=== PATIENT | male | born 1945 | race Caucasian/White ===

== ENCOUNTER → 2022-04-06 10:17 | Outpatient (BNVA) | payer MEDICARE, SELFPAY | PROVIDERS: PCP Internal Medicine; Visit Provider Nurse Practitioner Family | DX: G62.9 Polyneuropathy, unspecified (principal); R53.1 Weakness; K90.0 Celiac disease; R51.9 Headache, unspecified | CPT/HCPCS: 99202 ==

== ENCOUNTER → 2022-07-08 09:27 | Outpatient (BNVA) | payer MEDICARE, SELFPAY | PROVIDERS: PCP Internal Medicine; Visit Provider Nurse Practitioner Family | DX: G62.9 Polyneuropathy, unspecified (principal); R51.9 Headache, unspecified; R53.1 Weakness; K90.0 Celiac disease | CPT/HCPCS: 99212 ==

== ENCOUNTER → 2023-01-06 09:26 | Outpatient (BNVA) | payer MEDICARE, SELFPAY | PROVIDERS: PCP Internal Medicine; Visit Provider Nurse Practitioner Family | DX: G62.9 Polyneuropathy, unspecified (principal); R53.1 Weakness; R51.9 Headache, unspecified | CPT/HCPCS: 99212 ==

== ENCOUNTER 2023-07-12 09:21 | Outpatient (AMB) | payer MEDICARE, SELFPAY ==
[2023-07-12 09:30] VITALS: BP 118/82; BMI 20.7
--- NOTE | 2023-07-12 09:30 | A.OFFVIS_ITS ---
Intake Vital Signs 07/12/23 09:30 Height 6 ft 2 in Weight 161 lb BMI 20.7 BP 118/82 Blood Pressure Location Rt brachial Position Sitting Intake Visit Reasons: 6m follow up peripheral neuropathy - Confirmed Intake Note: Patient presents for 6 month follow up peripheral neuropathy. just the same issues that Nadine had when I've been here before Allergies gluten Allergy (Verified 07/12/23 09:32) Unknown Medication List - Last Reconciled 07/12/23 by YANNICK Araiza cholecalciferol (vitamin D3) 25 mcg PO DAILY fluoride (sodium) 1.1% (Denta 5000 Plus) appl PO BEDTIME magnesium oxide 400 mg PO BEDTIME 30 days riboflavin (vitamin B2) 400 mg PO DAILY 30 days sumatriptan succinate 50 - 100 mg orally at onset of headache, may repeat in 2 hrs PRN; max 2 tabs per day or 4 tabs/week (may take with Tylenol) 30 days HPI HPI Comments History of Present Illness Details 77-yr-old male presents for f/u visit. Pt denies any significant interval medical changes. Pt reports that his legs still feel weak. He recalls that when the weakness started after he had Covid-19, he had post- exercise fatigue, headache, GI upset, weakness x's a whole day. This progressed into increased weakness. This has subsided, where he is not having the more intense degree of post-exertion weakness. He notes he does try to not overexert while staill being active. Every few days, he will need to take a break. He is usually able to do a 1 mile walk on his treadmill as well as some stationary cycling, and does try to so some strength training- if he does more he will be more tired which can last into the next day. Sometimes distal BLE may feel not quite right, there is some numbness in R > L. He denies BLE discomfort, numbness. He is compliant w/ gluten free diet. Headaches are not great- waking up most nights toward the morning, w/ a headache, not most severe in the world . It is a general head pressure. He notes he almost always have some neck tightness and head pressure. He is taking the Mag and B2. He did try the Sumatriptan after his reclast tx- helped but caused nausea. [facility] Medical History Hypertensive disorder Inactive tuberculosis Malignant tumor of prostate Migraine Osteoarthritis of right knee Osteoporosis Pleural cavity effusion Surgical History Hx of resection of small bowel History of prostate surgery Hx of hernia repair Hx of cholecystectomy Family History Father Cancer Mother Stroke Family/Other Colon cancer Social History Household Members: Spouse Alcohol intake: current Alcohol intake frequency: a few times a week Patient Tobacco Use Status: Never used Tobacco Review of Systems Const All systems reviewed & are unremarkable except as noted in HPI and below Physical Exam Vital Signs: Last Vital Signs BP 118/82 07/12/23 09:30 BMI result Body Mass Index 20.7 Const General: cooperative and no acute distress Orientation/consciousness: patient oriented x3 HEENT Head: Yes normocephalic Resp Effort & Inspection: normal respiratory effort and able to speak in complete sentences Neuro Other: MS BLE MS 5/5 General: patient oriented x3, gait normal and CN's II-XI intact bilaterally Cognition (Neuro): normal cognition Motor exam (neuro): 5/5 motor strength present throughout Deep tendon reflexes (DTR's): Right patellar reflex intensity grade: 2+ and Left patellar reflex intensity grade: 2+ Psych Appearance: grossly normal Mental Status: mental status grossly normal Speech and movement: Normal speech and movement present Affect: normal affect Attitude: cooperative Thought process: Normal thought process present Thought content: Normal thought content present Insight: Good insight present (Psych) Judgement: Good judgement present (Psych) Assessment & Plan Assessment & Plan (1) Polyneuropathy: Comment: BLE EMG/NCS (May 2022 at [facility]): 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 Code(s): G62.9 - Polyneuropathy, unspecified (2) Weakness: Code(s): R53.1 - Weakness (3) Migraine without aura: Code(s): G43.009 - Migraine without aura, not intractable, without status migrainosus Plan LE EMG/NCS: 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 I suspect this is secondary to celiac dz, as the neuropathy s/s were his initial s/s that prompted celiac work-up. His s/s are improving, although there is some residual BLE fatigue. Reviewed again- Pt is still not interested in undergoing further peripheral neuropathy work-up at this point, will reconsider if s/s worsen. Continue exercise. Hold Sumatriptan 100mg prn- effective but causes GI upset- Trial Rizatriptan- pt may use prn, especially for his osteoporosis tx which can trigger migraine attack. Continue Riboflavin and Magnesium for low-grade headache symptoms. Future considerations- gepant or augmenting preventive tx f/u in 6 months or sooner prn new/worsening w/w. Medications: New rizatriptan max 2 tabs per day or 4 tabs per week 5 - 10 mg (0.5 - 1 x 10 mg) PO Q2H PRN 12 tabs 3RF migraine headache 21 days Discontinued sumatriptan succinate Discontinued Reason: Doctor's Order (0.5 - 1 x 100 mg) 50 - 100 mg orally at onset of headache, may repeat in 2 hrs PRN; max 2 tabs per day or 4 tabs/week (may take with Tylenol) 30 days 12 tabs 1RF migraine headache Coding Level of Care Code Est Pt Level 4 (64441) Diagnoses Polyneuropathy G62.9 Weakness R53.1 Migraine without aura G43.009
== END 2023-07-12 10:33 | disposition home or self-care (01) ==
PROVIDERS: PCP Internal Medicine; Visit Provider Nurse Practitioner Family
DX: G62.9 Polyneuropathy, unspecified (principal); R53.1 Weakness; G43.009 Migraine without aura, not intractable, without status migrainosus
CPT/HCPCS: 99214

== ENCOUNTER → 2023-07-12 09:21 | Outpatient (BNVA) | payer MEDICARE, SELFPAY | PROVIDERS: PCP Internal Medicine; Visit Provider Nurse Practitioner Family | DX: G62.9 Polyneuropathy, unspecified (principal); G43.009 Migraine without aura, not intractable, without status migrainosus; R53.1 Weakness | CPT/HCPCS: 99212 ==

== ENCOUNTER 2024-03-14 10:01 | Outpatient (AMB) | payer MEDICARE, SELFPAY ==
[2024-03-14 10:12] VITALS: BP 118/72; PULSE 62; O2SAT 98; BMI 20.7
--- NOTE | 2024-03-14 10:12 | MHC.OFFVIS ---
Vital Signs 03/14/24 10:12 Height 6 ft 2 in Weight 161 lb 8 oz BMI 20.7 BP 118/72 Blood Pressure Location Rt brachial Position Sitting Pulse 62 Pulse Source Pulse Oximeter Pulse Oximetry (%) 98 Oxygen Delivery Method Room Air Intake Visit Reasons: 6 mo f/u Plug Grower Required: No Accompanied by: Self / Same As Patient Allergies gluten Allergy (Verified 03/14/24 10:13) Unknown HPI Comments Details: 78-yr-old male presents for f/u visit. Pt denies any significant interval medical changes. Pt reports that his legs weakness is stable. Sometimes distal BLE may feel not quite right, like not having full strength when walking. He denies BLE discomfort, numbness. He is usually able to do 45 minutes a day of- walking on his treadmill as well as some stationary cycling, and does try to so some strength training- if he does more he will be more tired which can last into the next day. Tries to pace his activities, which he states is not so much an issue w/ indoor activities, but more so outdoor /yard work activities. He is compliant w/ gluten free diet. His headaches have improved some. He is taking the Mag. He has not been taking the B2. He has not needed to take the Rizatriptan often- but is better tolerated the the Sumatriptan. He does note that he has also had Bilateral high pitched toned Tinnitus since the previous Covid-19 infection. It is not overly bothersome- more so at bedtime or in quiet spaces. Has had hearing eval- has some mild high tone hearing loss. [facility] Medical History Hypertensive disorder Pleural cavity effusion Osteoarthritis of right knee Migraine Inactive tuberculosis Osteoporosis Malignant tumor of prostate Surgical History Hx of resection of small bowel History of prostate surgery Hx of hernia repair Hx of cholecystectomy Family History Father Cancer Mother Stroke Family/Other Colon cancer Social History Household Members: Spouse Alcohol intake: current Alcohol intake frequency: a few times a week Patient Tobacco Use Status: Never used Tobacco Physical Exam Const General: cooperative and no acute distress Orientation/consciousness: patient oriented x3 Resp Effort & Inspection: normal respiratory effort and able to speak in complete sentences Neuro Other: BLE MS 5/5. General: patient oriented x3 Cranial nerves: Yes CN's II-XII intact bilaterally Cognition (Neuro): normal cognition Deep tendon reflexes (DTR's): Right patellar reflex intensity grade: 2+ and Left patellar reflex intensity grade: 2+ Psych Appearance: grossly normal Mental Status: mental status grossly normal Speech and movement: Normal speech and movement present Affect: normal affect Attitude: cooperative Assessment & Plan Assessment & Plan (1) Polyneuropathy: Comment: BLE EMG/NCS (May 2022 at [facility]): 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 Code(s): G62.9 - Polyneuropathy, unspecified Category: Medical (2) Migraine without aura: Code(s): G43.009 - Migraine without aura, not intractable, without status migrainosus Category: Medical (3) Weakness: Code(s): R53.1 - Weakness Category: Medical Plan LE EMG/NCS: 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 I suspect this is secondary to celiac dz, as the neuropathy s/s were his initial s/s that prompted celiac work-up. His s/s have improved but stabilized with some residual BLE fatigue. Pt is has not been interested in undergoing further peripheral neuropathy work-up at this point, will reconsider if s/s worsen. Continue exercise. Rizatriptan- pt may use prn, especially for his osteoporosis tx which can trigger migraine attack. Continue Magnesium for low-grade headache symptoms. If headcahes worsen, resume Riboflavin. Preventive treatments- Sumatriptan 100mg prn- effective but causes GI upset Future considerations- gepant or augmenting preventive tx ? f/u in 6 months or sooner prn new/worsening w/w. Coding Level of Care Code Est Pt Level 4 (02041) Diagnoses Polyneuropathy G62.9 Migraine without aura G43.009 Weakness R53.1
== END 2024-03-14 11:19 | disposition home or self-care (01) ==
PROVIDERS: PCP Internal Medicine; Visit Provider Nurse Practitioner Family
DX: G62.9 Polyneuropathy, unspecified (principal); G43.009 Migraine without aura, not intractable, without status migrainosus; R53.1 Weakness
CPT/HCPCS: 99214

== ENCOUNTER → 2024-03-14 10:01 | Outpatient (BNVA) | payer MEDICARE, SELFPAY | PROVIDERS: PCP Internal Medicine; Visit Provider Nurse Practitioner Family | DX: G62.9 Polyneuropathy, unspecified (principal); G43.009 Migraine without aura, not intractable, without status migrainosus; R53.1 Weakness | CPT/HCPCS: 99212 ==

== ENCOUNTER 2024-12-12 10:52 | Outpatient (AMB) | payer MEDICARE, SELFPAY ==
[2024-12-12 10:55] VITALS: BP 108/76; PULSE 67; O2SAT 96; BMI 22.0
--- NOTE | 2024-12-12 10:55 | A.OFFVIS_ITS ---
Vital Signs 12/12/24 10:55 Height 6 ft 2 in Weight 171 lb 6 oz BMI 22.0 BP 108/76 Blood Pressure Location Rt brachial Position Sitting Pulse 67 Pulse Source Pulse Oximeter Pulse Oximetry (%) 96 Oxygen Delivery Method Room Air Intake Visit Reasons: 9mo F/U Intake Note: Patient here for a follow-up, feeling well. Illuminating Engineer Required: No Accompanied by: Self / Same As Patient Allergies gluten Allergy (Verified 12/12/24 11:01) Unknown Medication List - Last Reconciled 12/12/24 by YANNICK Araiza cholecalciferol (vitamin D3) 25 mcg PO DAILY fluoride (sodium) 1.1% (Denta 5000 Plus) appl PO BEDTIME magnesium oxide 400 mg PO BEDTIME 30 days riboflavin (vitamin B2) 400 mg PO DAILY 30 days rizatriptan 5 - 10 mg (0.5 - 1 x 10 mg) PO Q2H PRN 21 days Do you need a note to return to daycare/school/sports/work: No HPI Comments Details: 78-yr-old male presents for f/u visit headache and bilateral extremity neuropathy. Pt denies any significant interval medical changes. Pt states that he was pretty stable, however then in early winter, he started to feel like he had a relapse. He states he again started having increased episodes of abdominal pain which progresses into a headache and a poor feeling (depressed feeling) which would last a whole day- triggered by increased exertion, such as going up and down the stairs 5 times. During this time, he has not noticed an increase in his general fatigue- which he had after his initial Covid-19. He states typically more paced activities, such as working the yard for a few hours, would not trigger these episodes. Thus, he has stopped his typical exercise program for now. He notes that almost any physical activity can trigger a headache- so can have an almost daily migraine attack. He is not using the Rizatriptan very often. He has tried rizatriptan for these episodes where the headache was worse, and helps some but not fully.. He did see GI- and they did not have any new suggestions. His cardiac work-up has been very reassuring. Pt reports his leg weakness is a bit worse. Sometimes distal BLE may feel not quite right, like not having full strength when walking. He denies BLE discomfort, numbness. Again not doing his usual exercise routine- walking on his treadmill as well as some stationary cycling, and does try to so some strength training- if he does more he will be more tired which can last into the next day. Tries pace his activities, which he states is not so much an issue w/ indoor activities, but more so outdoor /yard work activities. He is compliant w/ gluten free diet- states his celiac antibody testing shows the celiac disease is well controlled. He does note that he has also had Bilateral high pitched toned Tinnitus since the previous Covid-19 infection. It is not overly bothersome- more so at bedtime or in quiet spaces. Has had hearing eval- has some mild high tone hearing loss. 04/06/2022, Initial HPI: 76-yr-old male presents for neurological evaluation of: dizziness, headcahes, neuropathy, GI discomfort. Pt has h/o HTN and celiac dz, prostate CA. Pt reports in mid he was diagnosed w/ BLE neuropathy, which eventually was attributed to Celiac dz (dx'd in 2015). At that time, pt reports BLE weakness, Mahamed foot coldness/burning sensations.At that time, he was also having migranious headaches and abdominal s/s. He has BLE EMG/NCS at Dr Turcios's office, which confirmed neuropathy. All of these symptoms improved after the celiac dz dx and he stopped taking gluten. He states that overall he was doing pretty well last year, although there was still some mild headaches, abdominal discomfort, and dizziness. However, in Jun 2021, he developed COVID-19 with mild head cold type symptoms, which resolved by mid-Jul 2021. After, maybe in early August, he started noticing fatigue induc ed by activity. The fatigue progressed to the point where he was not doing anything d/t weakness, w/ difficulty walking, and feeling unstable. His legs feel weak. This does not feel exactly the same as when he was initially dx'd w/ BLE neuropathy. During this period, his headaches intensified. He describes a daily headache that comes and goes. The headache is in the back of the head. He denies any associated photophobia, phonophobia, N/V, autonomic s/s. In the am he may have some neck tightness. He is also prone to a dizziness- he has difficulty describing it, but similar to a not right in space sensation a/w nausea and abdominal tightness but no vomiting. Dizziness can be triggered by eye movement. He denies any orthostatic lightheadedness/fogginess or syncope, although had orthostatic drop in BP and elevation in HR on testing at PCP office. He also has chronic pelvic and low back pain, but no shooting pains. Head and Neck CTA, December 2021- NL. Head CT, December 2021- no acute findings. Brain MRI w/o, January 2020, scattered punctuate T2 FLAIR hyperintensities suggestive of chronic microvascular iscshemia- similar to previous exam from 2018 Recent Gi work-up, including abd CT/MRI, upper/lower endoscopsy, was WNL. F/u celiac testing has been WNL. CBCs, CMPs, Lyme, AM cortisol ACTH levels -NL. Per pt, he had recent cardiac cath- WNL. He was recently tried on Midodrine for about a month, which did not help. He saw Dr Silverio, ENT. He had a normal hearing exam, but exam suggested a vestibular component to pt's dizziness symptoms. Advised to have brain MRI and start vestibular PT. PCP has recently ordered a l-spine MRI. Last c-spine MRI- in 2013. Last BLE EMG/NCS before 2016 [facility] Medical History Hypertensive disorder Pleural cavity effusion Osteoarthritis of right knee Migraine Inactive tuberculosis Osteoporosis Malignant tumor of prostate Surgical History Hx of resection of small bowel History of prostate surgery Hx of hernia repair Hx of cholecystectomy Family History Father Cancer Mother Stroke Family/Other Colon cancer Social History Household Members: Spouse Alcohol intake: current Alcohol intake frequency: a few times a week Patient Tobacco Use Status: Never used Tobacco Physical Exam Vital Signs: Last Vital Signs Pulse 67 12/12/24 10:55 BP 108/76 12/12/24 10:55 Pulse Ox 96 12/12/24 10:55 Oxygen Delivery Method Room Air 12/12/24 10:55 BMI result Body Mass Index 22.0 Const General: cooperative and no acute distress Orientation/consciousness: patient oriented x3 Resp Effort & Inspection: normal respiratory effort and able to speak in complete sentences Neuro General: patient oriented x3 Cranial nerves: Yes CN's II-XII intact bilaterally Cognition (Neuro): normal cognition Deep tendon reflexes (DTR's): Right patellar reflex intensity grade: 2+ and Left patellar reflex intensity grade: 2+ Psych Appearance: grossly normal Mental Status: mental status grossly normal Speech and movement: Normal speech and movement present Affect: normal affect Attitude: cooperative Assessment & Plan Assessment & Plan (1) Polyneuropathy: Comment: BLE EMG/NCS (May 2022 at [facility]): 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 Code(s): G62.9 - Polyneuropathy, unspecified Category: Medical (2) Migraine without aura: Code(s): G43.009 - Migraine without aura, not intractable, without status migrainosus Category: Medical Qualifiers: Status migrainosus presence: without status migrainosus Intractability: not intractable Qualified Code(s): G43.009 - Migraine without aura, not intractable, without status migrainosus (3) Weakness: Code(s): R53.1 - Weakness Category: Medical Plan For migraine without aura: Discussed that these recurrent episodes of GI upset associated with headache are likely migraine without aura. Unfortunately rizatriptan has not been effective for these, thus we discussed alternative therapies. Patient's preference is to try Ubrelvy- advised to take this at the earliest sign of the episode, as there is evidence for Ubrelvy to be effective when taken at onset of prodrome symptoms, and may resolve prodrome symptoms as well as the headache phase of migraine. Rizatriptan- pt may use prn, especially for his osteoporosis tx which can trigger migraine attack. Continue Magnesium 400 mg daily at bedtime Continue riboflavin 400 mg daily at bedtime Preventive acute treatment trials- Sumatriptan 100mg prn- effective but causes GI upset, rizatriptan-not fully effective. Future considerations- augmenting preventative treatment with low-dose amitriptyline. 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 I suspect this is secondary to celiac dz, as the neuropathy s/s were his initial s/s that prompted celiac work-up. His s/s have improved but stabilized with some residual BLE fatigue. Pt is has not been interested in undergoing further peripheral neuropathy work- up at this point, will reconsider if s/s worsen. Goal is to resume regular exercise. ? f/u in 6 months or sooner prn new/worsening w/w. Medications: New ubrogepant (Ubrelvy) take at onset of migraine, may repeat in 2hrs 50 - 100 mg (0.5 - 1 x 100 mg) PO ONCE 30 days PRN 16 tabs 6RF migraine headache Coding Level of Care Code Est Pt Level 4 (65464) Diagnoses Polyneuropathy G62.9 Migraine without aura and without status migrainosus, not intractable G43.009 Status migrainosus presence: without status migrainosus Intractability: not intractable Weakness R53.1
--- OUTSIDE RECORDS SUMMARY | 2024-12-12 12:49 | XMS_ITS | Clinical Summary ---
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 Name Role Phone Khanh Miranda MD Primary Care Provider Encounters Date Type Department Care Team Description 11/29/2024 Telephone [facility] [address] [place] [address] Aman Ogden MD records from Last 3 Months Surgical History Surgery Date Site/Laterality Comments BOWEL RESECTION PROCEDURE: HISTORICAL BOWEL RESECTION; COMMENT: small bowel intussuception HERNIA REPAIR PROCEDURE: HISTORICAL HERNIA REPAIR/ING PROSTATECTOMY 2013 PROCEDURE: PROSTATECTOMY UPPER GASTROINTESTINAL ENDOSCOPY 01/30/2019 PROCEDURE: OH UPPER GI ENDOSCOPY PERFORMED; COMMENT: negative, biopsy pending COLONOSCOPY PROCEDURE: HISTORICAL COLONOSCOPY; COMMENT: Performed in March [address] Suresh ESOPHAGOGASTRODUODENOSCOPY PROCEDURE: OH EGD TRANSORAL BIOPSY SINGLE/MULTIPLE; COMMENT: Performed along with colonoscopy in March [address] Suresh ESOPHAGOGASTRODUODENOSCOPY 09/23/2021 PROCEDURE: OH EGD TRANSORAL BIOPSY SINGLE/MULTIPLE; COMMENT: normal, biopsy negative for celiac and H.pylori COLONOSCOPY 09/23/2021 PROCEDURE: HISTORICAL COLONOSCOPY; COMMENT: normal Medical History Medical History Date Comments Celiac sprue DX:Celiac sprue Osteoporosis DX:Osteoporosis Neuropathy DX:Neuropathy History of prostate cancer DX:Hi story of prostate cancer Abdominal pain DX:Abdominal ashwini n Acid reflux DX:Acid reflux Gluten intolerance DX:Gluten int olerance Abdominal cramping DX:Abdominal cramping Family History Medical History Relation Name Comments Colon cancer Son Relation Name Status Comments Father Mother Son Social History Tobacco Use Types Packs/Day Years Used Date Smoking Tobacco: Never Smokeless Tobacco: Never Alcohol Use Standard Drinks/Week Comments Yes 0 (1 standard drink = 0.6 oz pur e alcohol) Sex and Gender Information Value Date Recorded Sex Assigned at Not on file Legal Sex Male 7:36 AM EST Gender Identity Not on file Sexual Orientation Not on file Obstetrics History Last Filed Vital Signs Vital Sign Reading Time Taken Comments Blood Pressure 118/76 11/23/2021 8:02 AM EDT Pulse 76 11/23/2021 8:02 AM EDT Temperature - - Respiratory Rate - - Oxygen Saturation - - Inhaled Oxygen Concentration - - Weight 73.2 kg (161 lb 6.4 oz) 11/23/2021 8:02 A M EDT Height 188 cm (6' 2 ) 11/23/2021 8:02 AM EDT Body Mass Index 20.72 11/23/2021 8:02 AM EDT Plan of Treatment Health Maintenance Due Date Last Done Comments COVID-19 Vaccine (#1) 1950 DTaP,Tdap,and Td Vaccines (1 - Tdap) 11/09/1963 Pneumococcal Vaccine: 50+ Ye ars (1 of 2 - PCV) 11/09/1963 Zoster Vaccines (1 of 2) 11/09/1964 RSV Immunization Adult Patie nts (1 - 1-dose 75+ series) 11/09/2019 Cholesterol Screening (Lipid Panel) 06/05/2022 Depression Screening 06/05/2022 Falls Risk Assessment 06/05/2022 Social Influencers of Health Screening 06/05/2022 Influenza Vaccine (Season Ended) 2025 HIB Vaccines Aged Out No longer eligi ble based on patient's age to complete this topic HPV Vaccines Aged Out No longer eligi ble based on patient's age to complete this topic Hepatitis A Vaccines Aged Out No long er eligible based on patient's age to complete this topic Hepatitis B Vaccines Aged Out No long er eligible based on patient's age to complete this topic IPV Vaccines Aged Out No longer eligi ble based on patient's age to complete this topic MMR Vaccines Aged Out No longer eligi ble based on patient's age to complete this topic Meningococcal ACWY Vaccine Aged Out N o longer eligible based on patient's age to complete this topic Meningococcal B Vaccine Aged Out No l onger eligible based on patient's age to complete this topic RSV Immunization Patients Un shanta 20 months Aged Out No longer eligible b ased on patient's age to complete this topic Varicella Vaccines Aged Out No longer eligible based on patient's age to complete this topic Advance Directives Documents on File Type Date Recorded Patient Legal Intern Expl anation Health Care Decision (hx) 08/23/2013 AD GONSALEZ DIRECTIVE Health Care Decision (hx) 08/23/2013 AD GONSALEZ DIRECTIVE Health Care Decision (hx) 08/23/2013 AD GONSALEZ DIRECTIVE Health Care Decision (hx) 07/26/2013 AD GONSALEZ DIRECTIVE Health Care Decision (hx) 07/26/2013 AD GONSALEZ DIRECTIVE Health Care Decision (hx) 07/26/2013 AD GONSALEZ DIRECTIVE Care Teams Electric Stove Installer Relationship Specialty Start Date End Date Khanh Miranda MD [address] [place] [address] PCP - General Internal Medicine 01/06/17
== END 2024-12-12 12:09 | disposition home or self-care (01) ==
LOC: HO.HSMS 10:53
PROVIDERS: PCP Internal Medicine; Visit Provider Nurse Practitioner Family
DX: G62.9 Polyneuropathy, unspecified (principal); G43.009 Migraine without aura, not intractable, without status migrainosus; R53.1 Weakness
CPT/HCPCS: 99214

== ENCOUNTER → 2024-12-12 10:52 | Outpatient (BNVA) | payer MEDICARE, SELFPAY | PROVIDERS: PCP Internal Medicine; Visit Provider Nurse Practitioner Family | DX: G43.009 Migraine without aura, not intractable, without status migrainosus (principal); G62.9 Polyneuropathy, unspecified; R53.1 Weakness | CPT/HCPCS: 99212 ==

== ENCOUNTER 2025-03-19 08:51 | Outpatient (AMB) | payer MEDICARE, SELFPAY ==
[2025-03-19 08:54] VITALS: BP 120/70; PULSE 65; O2SAT 99; BMI 21.8
--- NOTE | 2025-03-19 08:54 | A.OFFVIS_ITS ---
Vital Signs 03/19/25 08:54 Height 6 ft 2 in Weight 170 lb BMI 21.8 BP 120/70 Blood Pressure Location Rt brachial Position Sitting Pulse 65 Pulse Source Pulse Oximeter Pulse Oximetry (%) 99 Oxygen Delivery Method Room Air Intake Visit Reasons: 2m OK per KH Intake Note: Patient here for a follow-up, feeling well. Surveyor Mine Required: No Accompanied by: Self / Same As Patient Allergies gluten Allergy (Verified 03/19/25 08:54) Unknown Medication List - Last Reconciled 03/19/25 by YANNICK Araiza cholecalciferol (vitamin D3) 25 mcg PO DAILY fluoride (sodium) 1.1% (Denta 5000 Plus) appl PO BEDTIME magnesium oxide 400 mg PO BEDTIME 30 days riboflavin (vitamin B2) 400 mg PO DAILY 30 days rizatriptan 5 - 10 mg (0.5 - 1 x 10 mg) PO Q2H PRN 30 days ubrogepant (Ubrelvy) 50 - 100 mg (0.5 - 1 x 100 mg) PO ONCE PRN 30 days Do you need a note to return to daycare/school/sports/work: No HPI Comments Details: 79-yr-old male presents for f/u urgent follow-up visit for increased headache symptoms. Patient squeezes routinely for headache and bilateral extremity neuropathy. Patient reports he will be starting androgen-suppressing therapy for increasingly elevated PSAs; he reports overall he is asymptomatic at this time. He is concerned about the possibility of side effects, such as hot flashes. Patient reports that after his last appointment in December, he was doing ok, but then after January, he started having more migraines, abdominal tightness, and feeling generally weak. This is occurring most days. He saw a GI who thought he should follow up with us. He thinks that if his stress level is at baseline, he feels better. For instance, recently traveled out of [facility] and felt a little bit better at that time. Historically, he would tend to have migraine attacks on the weekend after workin g a whole week. He feels that the rizatriptan and ubrelvy are about equally effective- helps headache but not the associated symptoms- has not tried taking these together. Notes that the Ubrelvy co-pay was $500 for 10 tabs. He reports his leg weakness is stable. He is compliant with/a gluten-free diet- states his celiac antibody testing shows the celiac disease is well controlled. Continues to experience bilateral high-pitched, tonal tinnitus since the previous Covid-19 infection. It is not overly bothersome- more so at bedtime or in quiet spaces. Has had a hearing eval- has some mild high-tone hearing loss. 04/06/2022, Initial HPI: 76-yr-old male presents for neurological evaluation of: dizziness, headcahes, neuropathy, GI discomfort. Pt has h/o HTN and celiac dz, prostate CA. Pt reports in mid he was diagnosed w/ BLE neuropathy, which eventually was attributed to Celiac dz (dx'd in 2015). At that time, pt reports BLE weakness, Mahamed foot coldness/burning sensations.At that time, he was also having migranious headaches and abdominal s/s. He has BLE EMG/NCS at Dr Turcios's office, which confirmed neuropathy. All of these symptoms improved after the celiac dz dx and he stopped taking gluten. He states that overall he was doing pretty well last year, although there was still some mild headaches, abdominal discomfort, and dizziness. However, in Jun 2021, he developed COVID-19 with mild head cold type symptoms, which resolved by mid-Jul 2021. After, maybe in early August, he started noticing fatigue induced by activity. The fatigue progressed to the point where he was not doing anything d/t weakness, w/ difficulty walking, and feeling unstable. His legs feel weak. This does not feel exactly the same as when he was initially dx'd w/ BLE neuropathy. During this period, his headaches intensified. He describes a daily headache that comes and goes. The headache is in the back of the head. He denies any associated photophobia, phonophobia, N/V, autonomic s/s. In the am he may have some neck tightness. He is also prone to a dizziness- he has difficulty describing it, but similar to a not right in space sensation a/w nausea and abdominal tightness but no vomiting. Dizziness can be triggered by eye movement. He denies any orthostatic lightheadedness/fogginess or syncope, although had orthostatic drop in BP and elevation in HR on testing at PCP office. He also has chronic pelvic and low back pain, but no shooting pains. Head and Neck CTA, December 2021- NL. Head CT, December 2021- no acute findings. Brain MRI w/o, January 2020, scattered punctuate T2 FLAIR hyperintensities suggestive of chronic microvascular iscshemia- similar to previous exam from 2018 Recent Gi work-up, including abd CT/MRI, upper/lower endoscopsy, was WNL. F/u celiac testing has been WNL. CBCs, CMPs, Lyme, AM cortisol ACTH levels -NL. Per pt, he had recent cardiac cath- WNL. He was recently tried on Midodrine for about a month, which did not help. He saw Dr Silverio, ENT. He had a normal hearing exam, but exam suggested a vestibular component to pt's dizziness symptoms. Advised to have brain MRI and start vestibular PT. PCP has recently ordered a l-spine MRI. Last c-spine MRI- in 2013. Last BLE EMG/NCS before 2015 [facility] Medical History Hypertensive disorder Pleural cavity effusion Osteoarthritis of right knee Migraine Inactive tuberculosis Osteoporosis Malignant tumor of prostate Surgical History Hx of resection of small bowel History of prostate surgery Hx of hernia repair Hx of cholecystectomy Family History Father Cancer Mother Stroke Family/Other Colon cancer Social History Household Members: Spouse Alcohol intake: current Alcohol intake frequency: a few times a week Patient Tobacco Use Status: Never used Tobacco Physical Exam Vital Signs: Last Vital Signs Pulse 65 03/19/25 08:54 BP 120/70 03/19/25 08:54 Pulse Ox 99 03/19/25 08:54 Oxygen Delivery Method Room Air 03/19/25 08:54 BMI result Body Mass Index 21.8 Const General: cooperative and no acute distress Orientation/consciousness: patient oriented x3 Resp Effort & Inspection: normal respiratory effort and able to speak in complete sentences Neuro General: patient oriented x3 Cranial nerves: Yes CN's II-XII intact bilaterally Cognition (Neuro): normal cognition Deep tendon reflexes (DTR's): Right patellar reflex intensity grade: 2+ and Left patellar reflex intensity grade: 2+ Psych Appearance: grossly normal Mental Status: mental status grossly normal Speech and movement: Normal speech and movement present Affect: normal affect Attitude: cooperative Assessment & Plan Assessment & Plan (1) Migraine without aura: Code(s): G43.009 - Migraine without aura, not intractable, without status migrainosus Category: Medical Qualifiers: Intractability: not intractable Status migrainosus presence: without status migrainosus Qualified Code(s): G43.009 - Migraine without aura, not intractable, without status migrainosus (2) Polyneuropathy: Comment: BLE EMG/NCS (May 2022 at [facility]): 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 Code(s): G62.9 - Polyneuropathy, unspecified Category: Medical (3) Weakness: Code(s): R53.1 - Weakness Category: Medical Plan Discussed that, as the patient is about to start in androgen modulating hormone therapy, I would hesitate to add a new prescription preventative migraine medication at this time. Thus, we discussed alternative nonpharmacological tr eatments such as neuromodulation devices. Upon review of the available FDA- cleared devices, the patient opted to try the noninvasive vagus nerve stimulation device, which she is hopeful may also help some of his GI symptoms as well as his migraine headache symptoms. For nonpharmacological migraine treatment: Start gammaCore, non-invasive vagus nerve stimulation (nVNS), for both acute and preventative treatment of migraine: * Preventive treatment: 2 Two-minute stimulations on the same side of the neck, twice daily (morning, within 1 hour of waking up in the morning) and night) * Acute treatment: 2 Two-minute stimulations on the same side of the neck as needed; repeat treatment if pain persists?Max 24 stimulations per day * Gamma core start form completed and signed by provider. Year to 2 * Gammacore helpful patient tips * Learn your device: Read the instructions, familiarize yourself with the buttons, and understand the display. * Get training: Schedule a free phone or video session to learn correct use (call [employer] at [phone] or [email or web address]) * Correct placement: Position the device over the vagus nerve (near the pulse on your neck). * Use enough gel: Apply at least a pea-sized amount to both stimulation surfaces each time. * Adjust intensity: Increase slowly until you see a slight mouth or lip pull (usually between 15?25); make small placement or gel adjustments if needed. * Be consistent: Treat early, follow your daily plan, and give it time to work. For acute migraine without aura treatment: * Continue Rizatriptan 10mg tab, 1/2 - 1 tab (5-10mg) at onset of headache, may repeat in 2 hours. Max of 2 tabs (200mg) per 24 hours. * May adjunct with OTC Tylenol 650mg every 4 hours, Ibuprofen (liquigel) 600mg every 6 hours, or Naproxen (liquigel) 440mg every 12 hrs as needed. * May use as needed for migraine attack triggered by osteoporosis treatment. * Continue Ubrogepant (Ubrelvy) 100mg tab: * Take Ubrogepant 1/2 - 1 tab (50-100mg) at onset of headache. * You may repeat the dose in 2 hours. Max of 2 tabs (200mg) per 24 hours. * You may take Ubrogepant with rizatriptan and/or OTC Tylenol 650mg q 4 hours, Ibuprofen (liquid gel) 600mg q 6 hours, or Naproxen (liquid gel) 440mg q 12 hrs as needed. * Preventive acute treatment trials- Sumatriptan 100mg prn- effective but causes GI upset, rizatriptan-not fully effective. For migraine without aura treatment prevention: * Continue Magnesium 400 mg daily at bedtime * Continue riboflavin 400 mg daily at bedtime Future considerations- augmenting preventative treatment with low-dose amitriptyline. 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 I suspect this is secondary to celiac dz, as the neuropathy s/s were his initial s/s that prompted celiac work-up. His s/s have improved but stabilized with some residual BLE fatigue. Pt is has not been interested in undergoing further peripheral neuropathy work- up at this point, will reconsider if s/s worsen. Goal is to resume regular exercise. Follow-up as scheduled. Medications: Changed From rizatriptan max 2 tabs per day or 4 tabs per week 5 - 10 mg (0.5 - 1 x 10 mg) PO Q2H 21 days PRN 12 tabs 3RF migraine headache To rizatriptan max 3 tabs per day or 6 tabs per week 5 - 10 mg (0.5 - 1 x 10 mg) PO Q2H PRN 12 tabs 3RF migraine headache 30 days Coding Level of Care Code Est Pt Level 4 (10239) Diagnoses Migraine without aura and without status migrainosus, not intractable G43.009 Intractability: not intractable Status migrainosus presence: without status migrainosus Polyneuropathy G62.9 Weakness R53.1
--- OUTSIDE RECORDS SUMMARY | 2025-03-19 10:24 | XMS_ITS | Clinical Summary ---
Author Organization [facility] Address [address] [place] [address] Care Team Providers Care Certified Midwife Name Role Phone Khanh Miranda MD Primary Care Provider Surgical History Surgery Date Site/Laterality Comments BOWEL RESECTION PROCEDURE: HISTORICAL BOWEL RESECTION; COMMENT: small bowel intussuception HERNIA REPAIR PROCEDURE: HISTORICAL HERNIA REPAIR/ING PROSTATECTOMY 2013 PROCEDURE: PROSTATECTOMY UPPER GASTROINTESTINAL ENDOSCOPY 01/30/2019 PROCEDURE: [place] UPPER GI ENDOSCOPY PERFORMED; COMMENT: negative, biopsy pending COLONOSCOPY PROCEDURE: HISTORICAL COLONOSCOPY; COMMENT: Performed in March [address] Suresh ESOPHAGOGASTRODUODENOSCOPY PROCEDURE: [place] EGD TRANSORAL BIOPSY SINGLE/MULTIPLE; COMMENT: Performed along with colonoscopy in March [address] Suresh ESOPHAGOGASTRODUODENOSCOPY 09/23/2021 PROCEDURE: [place] EGD TRANSORAL BIOPSY SINGLE/MULTIPLE; COMMENT: normal, biopsy [...] Health Maintenance Due Date Last Done Comments Pneumococcal Vaccine: 50+ Years (1 of 1 - PCV) 1994 RSV Immunization Adult Patients (1 - 1-dose 75+ series) 11/09/2019 Cholesterol Screening (Lipid Panel) 06/05/2022 Falls Risk Assessment 06/05/2022 Social Influencers of Health Screening 06/05/2022 Depression Screening 07/03/2024 COVID-19 Vaccine ( season) 2025 03/26/2024, 10/18/2023, 04/12/2023, Additional history exists Influenza Vaccine (#1) 2025 , 04/12/2023, 04/15/2022, Additional history exists Hypertension/CHF/CAD Annual BMP Blood Test 03/17/2025 DTaP,Tdap,and Td Vaccines (2 - Td or Tdap) 08/02/2033 08/02/2023 Zoster Vaccines Completed 08/13/2021, 04/14/2021 HIB Vaccines Aged Out No longer eligi [...] to complete this topic RSV Immunization Patients Under 20 months Aged Out No longer eligible based on patient's age to complete this topic Varicella Vaccines Aged Out No longer eligible based on patient's age to complete this topic Advance Directives Documents on File Type Date Recorded 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
== END 2025-03-19 09:54 | disposition home or self-care (01) ==
LOC: HO.HSMS 08:52
PROVIDERS: PCP Internal Medicine; Visit Provider Nurse Practitioner Family
DX: G43.009 Migraine without aura, not intractable, without status migrainosus (principal); G62.9 Polyneuropathy, unspecified; R53.1 Weakness
CPT/HCPCS: 99214

== ENCOUNTER → 2025-03-19 08:51 | Outpatient (BNVA) | payer MEDICARE, SELFPAY | PROVIDERS: PCP Internal Medicine; Visit Provider Nurse Practitioner Family | DX: G43.009 Migraine without aura, not intractable, without status migrainosus (principal); G62.9 Polyneuropathy, unspecified; R53.1 Weakness; Z79.899 Other long term (current) drug therapy | CPT/HCPCS: 99212 ==

== ENCOUNTER 2025-06-18 07:45 | Outpatient (AMB) | payer MEDICARE, SELFPAY ==
--- OUTSIDE RECORDS SUMMARY | 2025-06-18 07:48 | XMS_ITS | Clinical Summary ---
Author Organization [facility] Address [address] [place] [address] Care Team Providers Care Manhole Stripper Name Role Phone Khanh Miranda MD Primary Care Provider Surgical History Surgery Date Site/Laterality Comments BOWEL RESECTION PROCEDURE: HISTORICAL BOWEL RESECTION; COMMENT: small bowel intussuception HERNIA REPAIR PROCEDURE: HISTORICAL HERNIA REPAIR/ING PROSTATECTOMY 2013 PROCEDURE: PROSTATECTOMY UPPER GASTROINTESTINAL ENDOSCOPY 01/30/2019 PROCEDURE: [place] UPPER GI ENDOSCOPY PERFORMED; COMMENT: negative, biopsy pending COLONOSCOPY PROCEDURE: HISTORICAL COLONOSCOPY; COMMENT: Performed in March [address] Suresh ESOPHAGOGASTRODUODENOSCOPY PROCEDURE: [place] EGD TRANSORAL BIOPSY SINGLE/MULTIPLE; COMMENT: Performed along with colonoscopy in March [address] 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
[2025-06-18 08:06] VITALS: BP 124/80; PULSE 60; O2SAT 98; BMI 21.7
--- NOTE | 2025-06-18 08:06 | A.OFFVIS_ITS ---
Vital Signs 06/18/25 08:06 Height 6 ft 2 in Weight 169 lb BMI 21.7 BP 124/80 Blood Pressure Location Lt brachial Position Sitting Pulse 60 Pulse Source Pulse Oximeter Pulse Oximetry (%) 98 Oxygen Delivery Method Room Air Intake Visit Reasons: 6m follow up Intake Note: Patient here for a follow-up, feeling well. 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 Required: No Accompanied by: Self / Same As Patient Allergies gluten Allergy (Verified 06/18/25 08:11) Unknown Medication List - Last Reconciled 06/18/25 by YANNICK Araiza cholecalciferol (vitamin D3) 25 mcg PO DAILY fluoride (sodium) 1.1% (Denta 5000 Plus) appl PO BEDTIME magnesium oxide 400 mg PO BEDTIME 30 days riboflavin (vitamin B2) 400 mg PO DAILY 30 days rizatriptan 5 - 10 mg (0.5 - 1 x 10 mg) PO Q2H PRN 30 days ubrogepant (Ubrelvy) 50 - 100 mg (0.5 - 1 x 100 mg) PO ONCE PRN 30 days Do you need a note to return to daycare/school/sports/work: No HPI Comments Details: 79-yr-old male presents for f/u urgent follow-up visit for increased headache symptoms. Patient squeezes routinely for headache and bilateral extremity neuropathy. Pt reports he is feeling better overall since he started using Gamma Core in Apr, with gradually increasing the intensity. He is using it generally 2-3 x's per day for prevention. He notes that he tolerates it better when he uses it on the left side, rather than the right (as it irritates a right lower tooth) Since starting Gammacore, he has needed to use less of his triptan. He has not been using Ubrelvy. He is better able to tolerate physical activity He is curious about the OTC alternative to gamma core. He is noticing that he is waking up around 2-4 am and then cannot quickly, Typically wakes up ao gets out of bed by 6am. Typical bedtime is at 10pm. No usual caffeine use. Some alcohol, but no correlation w/ sleep difficulties. 03/19/2025, HPI: 79-yr-old male presents for f/u urgent follow-up visit for increased headache symptoms. Patient squeezes routinely for headache and bilateral extremity neuropathy. Patient reports he will be starting androgen-suppressing therapy for increasingly elevated PSAs; he reports overall he is asymptomatic at this time. He is concerned about the possibility of side effects, such as hot flashes. Patient reports that after his last appointment in December, he was doing ok, but then after January, he started having more migraines, abdominal tightness, and feeling generally weak. This is occurring most days. He saw a GI who thought he should follow up with us. He thinks that if his stress level is at baseline, he feels better. For rosina zamarripa, recently traveled out of [place] the [facility] and felt a little bit better at that time. Historically, he would tend to have migraine attacks on the weekend after working a whole week. He feels that the rizatriptan and ubrelvy are about equally effective- helps headache but not the associated symptoms- has not tried taking these together. Notes that the Ubrelvy co-pay was $500 for 10 tabs. He reports his leg weakness is stable. He is compliant with/a gluten-free diet- states his celiac antibody testing shows the celiac disease is well controlled. Continues to experience bilateral high-pitched, tonal tinnitus since the previous Covid-19 infection. It is not overly bothersome- more so at bedtime or in quiet spaces. Has had a hearing eval- has some mild high-tone hearing loss. 04/06/2022, Initial HPI: 76-yr-old male presents for neurological evaluation of: dizziness, headcahes, neuropathy, GI discomfort. Pt has h/o HTN and celiac dz, prostate CA. Pt reports in mid he was diagnosed w/ BLE neuropathy, which eventually was attributed to Celiac dz (dx'd in 2015). At that time, pt reports BLE weakness, Mahamed foot coldness/burning sensations.At that time, he was also having migranious headaches and abdominal s/s. He has BLE EMG/NCS at Dr Turcios's office, which confirmed neuropathy. All of these symptoms improved after the celiac dz dx and he stopped taking gluten. He states that overall he was doing pretty well last year, although there was still some mild headaches, abdominal discomfort, and dizziness. However, in Jun 2021, he developed COVID-19 with mild head cold type symptoms, which resolved by mid-Jul 2021. After, maybe in early August, he started noticing fatigue induced by activity. The fatigue progressed to the point where he was not doing anything d/t weakness, w/ difficulty walking, and feeling unstable. His legs feel weak. This does not feel exactly the same as when he was initially dx'd w/ BLE neuropathy. During this period, his headaches intensified. He describes a daily headache that comes and goes. The headache is in the back of the head. He denies any associated photophobia, phonophobia, N/V, autonomic s/s. In the am he may have some neck tightness. He is also prone to a dizziness- he has difficulty describing it, but similar to a not right in space sensation a/w nausea and abdominal tightness but no vomiting. Dizziness can be triggered by eye movement. He denies any orthostatic lightheadedness/fogginess or syncope, although had orthostatic drop in BP and elevation in HR on testing at PCP office. He also has chronic pelvic and low back pain, but no shooting pains. Head and Neck CTA, December 2021- NL. Head CT, December 2021- no acute findings. Brain MRI w/o, January 2020, scattered punctuate T2 FLAIR hyperintensities sugg estive of chronic microvascular iscshemia- similar to previous exam from 2018 Recent Gi work-up, including abd CT/MRI, upper/lower endoscopsy, was WNL. F/u celiac testing has been WNL. CBCs, CMPs, Lyme, AM cortisol ACTH levels -NL. Per pt, he had recent cardiac cath- WNL. He was recently tried on Midodrine for about a month, which did not help. He saw Dr Jean Claude, ENT. He had a normal hearing exam, but exam suggested a vestibular component to pt's dizziness symptoms. Advised to have brain MRI and start vestibular PT. PCP has recently ordered a l-spine MRI. Last c-spine MRI- in 2013. Last BLE EMG/NCS before 2015 [facility] Medical History Hypertensive disorder Pleural cavity effusion Osteoarthritis of right knee Migraine Inactive tuberculosis Osteoporosis Malignant tumor of prostate Surgical History Hx of resection of small bowel History of prostate surgery Hx of hernia repair Hx of cholecystectomy Family History Father Cancer Mother Stroke Family/Other Colon cancer Social History Household Members: Spouse Alcohol intake: current Alcohol intake frequency: a few times a week Patient Tobacco Use Status: Never used Tobacco Physical Exam Vital Signs: Last Vital Signs Pulse 60 06/18/25 08:06 BP 124/80 06/18/25 08:06 Pulse Ox 98 06/18/25 08:06 Oxygen Delivery Method Room Air 06/18/25 08:06 BMI result Body Mass Index 21.7 Const General: cooperative and no acute distress Orientation/consciousness: patient oriented x3 Resp Effort & Inspection: normal respiratory effort and able to speak in complete sentences Neuro General: patient oriented x3 Cranial nerves: Yes CN's II-XII intact bilaterally Cognition (Neuro): normal cognition Deep tendon reflexes (DTR's): Right patellar reflex intensity grade: 2+ and Left patellar reflex intensity grade: 2+ Psych Appearance: grossly normal Mental Status: mental status grossly normal Speech and movement: Normal speech and movement present Affect: normal affect Attitude: cooperative Assessment & Plan Assessment & Plan (1) Migraine without aura: Code(s): G43.009 - Migraine without aura, not intractable, without status migrainosus Category: Medical Qualifiers: Intractability: not intractable Status migrainosus presence: without status migrainosus Qualified Code(s): G43.009 - Migraine without aura, not intractable, without status migrainosus (2) Polyneuropathy: Comment: BLE EMG/NCS (May 2022 at [facility]): 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 Code(s): G62.9 - Polyneuropathy, unspecified Category: Medical (3) Weakness: Code(s): R53.1 - Weakness Category: Medical Plan Discussed that at this time, I do not clearly no the distinct differences between the prescription and OTC versions of gamma core/noninvasive vagus nerve stimulators. However, we will research this, including reaching out to manufacture's of these devices, which is the same distillery manager, and let him know when we know more. For nonpharmacological migraine treatment: Continue gammaCore, non-invasive vagus nerve stimulation (nVNS), for both acute and preventative treatment of migraine: * Preventive treatment: 2 Two-minute stimulations on the same side of the neck, twice daily (morning, within 1 hour of waking up in the morning) and night) * Acute treatment: 2 Two-minute stimulations on the same side of the neck as needed; repeat treatment if pain persists?Max 24 stimulations per day For acute migraine without aura treatment: * Continue Rizatriptan 10mg tab, 1/2 - 1 tab (5-10mg) at onset of headache, may repeat in 2 hours. Max of 2 tabs (200mg) per 24 hours. * May adjunct with OTC Tylenol 650mg every 4 hours, Ibuprofen (liquigel) 600mg every 6 hours, or Naproxen (liquigel) 440mg every 12 hrs as needed. * May use as needed for migraine attack triggered by osteoporosis treatment. * If needed, may resume Ubrogepant (Ubrelvy) 100mg tab: * Take Ubrogepant 1/2 - 1 tab (50-100mg) at onset of headache. * You may repeat the dose in 2 hours. Max of 2 tabs (200mg) per 24 hours. * You may take Ubrogepant with rizatriptan and/or OTC Tylenol 650mg q 4 hours, Ibuprofen (liquid gel) 600mg q 6 hours, or Naproxen (liquid gel) 440mg q 12 hrs as needed. * Preventive acute treatment trials- Sumatriptan 100mg prn- effective but causes GI upset, rizatriptan-not fully effective. For migraine without aura treatment prevention: * Continue Magnesium 400 mg daily at bedtime * Continue riboflavin 400 mg daily at bedtime Future considerations- augmenting preventative treatment with low-dose amitriptyline. 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 Previously discuss, that this is likely secondary to celiac dz, as the neuropathy s/s were his initial s/s that prompted celiac work-up. His s/s have improved but stabilized with some residual BLE fatigue. Pt is has not been interested in undergoing further peripheral neuropathy work- up at this point, will reconsider if s/s worsen. Continue to engage in regular physical activity as tolerated Pt to follow-up in 6 months or sooner prn. Coding Level of Care Code Est Pt Level 4 (89849) Diagnoses Migraine without aura and without status migrainosus, not intractable G43.009 Intractability: not intractable Status migrainosus presence: without status migrainosus Polyneuropathy G62.9 Weakness R53.1
== END 2025-06-18 09:04 | disposition home or self-care (01) ==
LOC: HO.HSMS 07:45
PROVIDERS: PCP Internal Medicine; Visit Provider Nurse Practitioner Family
DX: G43.009 Migraine without aura, not intractable, without status migrainosus (principal); G62.9 Polyneuropathy, unspecified; R53.1 Weakness
CPT/HCPCS: 99214

== ENCOUNTER → 2025-06-18 07:45 | Outpatient (BNVA) | payer MEDICARE, SELFPAY | PROVIDERS: PCP Internal Medicine; Visit Provider Nurse Practitioner Family | DX: G43.009 Migraine without aura, not intractable, without status migrainosus (principal); R53.1 Weakness; G62.9 Polyneuropathy, unspecified | CPT/HCPCS: 99212 ==